=== PATIENT | female | born 1995 | race Caucasian/White ===

== ENCOUNTER 2018-02-05 20:10 | Emergency (ER) | payer BC, MEDICAID ==
[~2018-02-05 20:10] MED LIST: ESCI20TA38 PO; LISD20CA4 PO; LOR5/325 PO
[2018-02-05] MEDS ORDERED: ESCI20TA38 PO (20:18)
--- NOTE | 2018-02-05 20:19 | ER Report ---
History and Physical Time Seen By MD: 20:12 HPI/ROS CHIEF COMPLAINT: Back pain HISTORY OF PRESENT ILLNESS: 22-year-old female presents with her mom concerned over a spot on her left lower back. She's had a spot for 6 months. There is a hypopigmented thickened area of skin with increased pores tonight. The patient notes pain is quite unbearable. She is unable to sleep. She been taking some ibuprofen without relief. She was seen by her chief deputy clerk/bailiff several weeks ago and told it was a birthmark. Patient notes a mild dull pain there for several months. It waxes and wanes. She notes a spot has increased in size and spread toward the midline. On visualization of the back. There is a hypopigmented thickened skin area that appears oval in shape with fingers extending medially. It is mildly tender to palpation. It does appear indurated on palpation. Patient denies dysuria, frequency or hematuria. She denies any trauma to the area. He notes no shortness of breath or cough. REVIEW OF SYSTEMS: Respiratory: No cough, no dyspnea. Cardiovascular: No chest pain, no palpitations. Gastrointestinal: No vomiting, no abdominal pain. Musculoskeletal: As above Allergies: Coded Allergies: No Known Drug Allergies (Unverified , 02/05/18) Home Meds Active Scripts Tramadol Hcl (TRAMADOL HCL) 50 Mg Tablet, 1 TAB PO Q4-6H PRN for PAIN, #15 MG TAKE ONE TO TWO TABLETS BY MOUTH EVERY FOUR TO SIX HOURS NEEDED Prov:ERIN GALAN DO 02/05/18 Reported Medications Escitalopram Oxalate (LEXAPRO) 20 Mg Tablet, 10 MG PO QDAY, TAB 02/05/18 Lisdexamfetamine Dimesylate (VYVANSE) 20 Mg Capsule, 20 MG PO QDAY, CAPSULE 05/01/13 Discontinued Reported Medications Hydrocodone Bit/Acetaminophen (HYDROCODON-ACETAMINOPHEN 5-325) 1 Each Tablet, 1 EACH PO Q4-6H PRN for PAIN 05/01/13 Escitalopram Oxalate (LEXAPRO) 20 Mg Tablet, 20 MG PO QDAY 05/01/13 Discontinued Scripts Hydrocodone Bit/Acetaminophen (HYDROCODON-ACETAMINOPHEN 5-325) 1 Each Tablet, 1 EACH PO Q4-6H PRN for PAIN, #20 0 Refills TAKE ONE TABLET BY MOUTH EVERY 4-6 HOURS NEEDED FOR PAIN Prov:YUDY MATIAS MD 05/01/13 Past Medical/Surgical History Fractured wrist Reviewed Nurses Notes: Yes Old Medical Records Reviewed: Yes Hx Smoking: No Smoking Status: Never Smoker Exposure to Second Hand Smoke?: No Constitutional Vital Sign - Last 24 Hours 02/05/18 02/05/18 02/05/18 02/05/18 20:14 20:25 20:30 20:55 Temp 98.5 Pulse 98 99 93 Resp 16 B/P (MAP) 136/97 133/95 (108) Pulse Ox 96 95 93 02/05/18 02/05/18 02/05/18 02/05/18 21:00 21:10 21:15 21:39 Pulse 104 105 B/P (MAP) 133/99 (110) 130/86 (101) Pulse Ox 94 89 02/05/18 02/05/18 02/05/18 02/05/18 21:44 21:59 22:00 22:14 Pulse 92 89 93 B/P (MAP) 128/81 (97) Pulse Ox 95 94 94 02/05/18 22:19 Pulse ??? Pulse Ox 92 Intake and Output 02/05/18 02/05/18 02/06/18 15:00 23:00 07:00 Intake Total 1000 ml Balance 1000 ml Physical Exam Vital signs stable, afebrile, pulse ox normal General Appearance: The patient is alert, has no immediate need for airway protection and no current signs of toxicity. Mild distress Eyes: Pupils equal and round no injection. Respiratory: Chest is non tender, lungs are clear to auscultation. Cardiac: regular rate and rhythm Gastrointestinal: Abdomen is soft and non tender, no masses, bowel sounds normal., Examination of the left like reveals a hypopigmented thickened area of skin approximately 2 cm x 3 cm in oval-appearing shape with extension medially toward the midline of the medial aspect of this lesion. It's approximately in the mid scapular line. Musculoskeletal: Neck: Neck is supple and non tender. No lymphadenopathy, no thyromegaly Extremities have full range of motion and are non tender. No edema, no calf tenderness Skin: As noted above DIFFERENTIAL DIAGNOSIS: After history and physical exam differential diagnosis was considered for flank pain including but not limited to musculoskeletal causes, kidney stone, pyelonephritis, shingles, and intra-abdominal causes such as diverticulitis and appendicitis. Medical Decision Making Data Points Result Diagram: 12/11/18 2046 12/11/18 2046 Laboratory Hematology Test 02/05/18 20:44 02/05/18 20:46 Urine Color Yellow Urine Clarity Slightly-cloudy Urine pH 6.0 pH (4.8-9.5) Urine Specific [place] 1.020 Urine Protein Negative mg/dL (NEGATIVE) Urine Glucose (UA) Negative mg/dL (NEGATIVE) Urine Ketones Negative mg/dL (NEGATIVE) Urine Blood Negative (NEGATIVE) Urine Nitrite Negative (NEGATIVE) Urine Bilirubin Negative (NEGATIVE) Urine Urobilinogen Negative mg/dL (0.2-1.9) Urine Leukocyte Esterase Negative (NEGATIVE) Urine RBC None /HPF (0-2/HPF) Urine WBC 1 /HPF (0-5/HPF) Urine Squamous Epithelial Cells Many /LPF (</=FEW) Urine Bacteria Negative /HPF (NONE-FEW) Urine Mucus None /HPF (NONE-FEW) Red Blood Count 5.15 M/uL (4.17-5.56) Mean Corpuscular Volume 92.3 fL (80.0-96.0) Mean Corpuscular Hemoglobin 31.4 pg (26.0-33.0) Mean Corpuscular Hemoglobin Concent 34.0 g/dL (32.0-36.0) Red Cell Distribution Width 13.1 % (11.5-14.5) Mean Platelet Volume 9.7 fL (7.2-11.1) Neutrophils (%) (Auto) 65.0 % (39.4-72.5) Lymphocytes (%) (Auto) 22.9 % (17.6-49.6) Monocytes (%) (Auto) 6.7 % (4.1-12.4) Eosinophils (%) (Auto) 1.2 % (0.4-6.7) Basophils (%) (Auto) 4.2 % (0.3-1.4) Nucleated RBC Relative Count (auto) 0.0 /100WBC Neutrophils # (Auto) 3.6 K/uL (2.0-7.4) Lymphocytes # (Auto) 1.3 K/uL (1.3-3.6) Monocytes # (Auto) 0.4 K/uL (0.3-1.0) Eosinophils # (Auto) 0.1 K/uL (0.0-0.5) Basophils # (Auto) 0.2 K/uL (0.0-0.1) Nucleated RBC Absolute Count (auto) 0.00 K/uL Peripheral Blood Smear Yes Y/N Erythrocyte Sedimentation Rate 7 mm/HOUR (0-20) Sodium Level 140 mmol/L (137-145) Potassium Level 4.0 mmol/L (3.5-5.0) Chloride Level 103 mmol/L (98-107) Carbon Dioxide Level 23 mmol/L (22-31) Blood Urea Nitrogen 15 mg/dl (7-18) Creatinine 0.70 mg/dl (0.52-1.04) Glomerular Filtration Rate Calc > 60.0 Random Glucose 102 mg/dl (75-110) Calcium Level 10.0 mg/dl (8.4-10.2) Total Bilirubin 0.2 mg/dl (0.2-1.3) Aspartate Amino Transf (AST/SGOT) 28 U/L (0-35) Alanine Aminotransferase (ALT/SGPT) 24 U/L (0-56) Alkaline Phosphatase 56 U/L (0-126) C-Reactive Protein 0.5 mg/dl (<1.0) Total Protein 8.2 g/dl (6.3-8.2) Albumin 4.6 g/dl (3.5-5.0) Amylase Level 76 U/L (0-110) Lipase 88 U/L (23-300) Human Chorionic Gonadotropin, Qual Negative (NEGATIVE) Chemistry Test 02/05/18 20:44 02/05/18 20:46 Urine Color Yellow Urine Clarity Slightly-cloudy Urine pH 6.0 pH (4.8-9.5) Urine Specific [place] 1.020 Urine Protein Negative mg/dL (NEGATIVE) Urine Glucose (UA) Negative mg/dL (NEGATIVE) Urine Ketones Negative mg/dL (NEGATIVE) Urine Blood Negative (NEGATIVE) Urine Nitrite Negative (NEGATIVE) Urine Bilirubin Negative (NEGATIVE) Urine Urobilinogen Negative mg/dL (0.2-1.9) Urine Leukocyte Esterase Negative (NEGATIVE) Urine RBC None /HPF (0-2/HPF) Urine WBC 1 /HPF (0-5/HPF) Urine Squamous Epithelial Cells Many /LPF (</=FEW) Urine Bacteria Negative /HPF (NONE-FEW) Urine Mucus None /HPF (NONE-FEW) White Blood Count 5.6 k/uL (4.5-11.0) Red Blood Count 5.15 M/uL (4.17-5.56) Hemoglobin 16.2 g/dL (12.0-16.0) Hematocrit 47.5 % (34.0-47.0) Mean Corpuscular Volume 92.3 fL (80.0-96.0) Mean Corpuscular Hemoglobin 31.4 pg (26.0-33.0) Mean Corpuscular Hemoglobin Concent 34.0 g/dL (32.0-36.0) Red Cell Distribution Width 13.1 % (11.5-14.5) Platelet Count 336 K/uL (150-450) Mean Platelet Volume 9.7 fL (7.2-11.1) Neutrophils (%) (Auto) 65.0 % (39.4-72.5) Lymphocytes (%) (Auto) 22.9 % (17.6-49.6) Monocytes (%) (Auto) 6.7 % (4.1-12.4) Eosinophils (%) (Auto) 1.2 % (0.4-6.7) Basophils (%) (Auto) 4.2 % (0.3-1.4) Nucleated RBC Relative Count (auto) 0.0 /100WBC Neutrophils # (Auto) 3.6 K/uL (2.0-7.4) Lymphocytes # (Auto) 1.3 K/uL (1.3-3.6) Monocytes # (Auto) 0.4 K/uL (0.3-1.0) Eosinophils # (Auto) 0.1 K/uL (0.0-0.5) Basophils # (Auto) 0.2 K/uL (0.0-0.1) Nucleated RBC Absolute Count (auto) 0.00 K/uL Peripheral Blood Smear Yes Y/N Erythrocyte Sedimentation Rate 7 mm/HOUR (0-20) Glomerular Filtration Rate Calc > 60.0 Calcium Level 10.0 mg/dl (8.4-10.2) Total Bilirubin 0.2 mg/dl (0.2-1.3) Aspartate Amino Transf (AST/SGOT) 28 U/L (0-35) Alanine Aminotransferase (ALT/SGPT) 24 U/L (0-56) Alkaline Phosphatase 56 U/L (0-126) C-Reactive Protein 0.5 mg/dl (<1.0) Total Protein 8.2 g/dl (6.3-8.2) Albumin 4.6 g/dl (3.5-5.0) Amylase Level 76 U/L (0-110) Lipase 88 U/L (23-300) Human Chorionic Gonadotropin, Qual Negative (NEGATIVE) Urinalysis Test 02/05/18 20:44 Urine Color Yellow Urine Clarity Slightly-cloudy Urine pH 6.0 pH (4.8-9.5) Urine Specific [place] 1.020 Urine Protein Negative mg/dL (NEGATIVE) Urine Glucose (UA) Negative mg/dL (NEGATIVE) Urine Ketones Negative mg/dL (NEGATIVE) Urine Blood Negative (NEGATIVE) Urine Nitrite Negative (NEGATIVE) Urine Bilirubin Negative (NEGATIVE) Urine Urobilinogen Negative mg/dL (0.2-1.9) Urine Leukocyte Esterase Negative (NEGATIVE) Urine RBC None /HPF (0-2/HPF) Urine WBC 1 /HPF (0-5/HPF) Urine Squamous Epithelial Cells Many /LPF (</=FEW) Urine Bacteria Negative /HPF (NONE-FEW) Urine Mucus None /HPF (NONE-FEW) EKG/Imaging Imaging Results: CT scan of the abdomen and pelvis with IV contrast was obtained. The results of the study are COMPUTED TOMOGRAPHY ABDOMEN AND PELVIS WITH INTRAVENOUS CONTRAST DATE OF EXAM: 02/05/2018 9:28 PM INDICATION: Severe left flank pain, subcutaneous lesion. COMPARISON: None. TECHNIQUE: Contrast enhanced abdomen and pelvis CT performed during the injection of 75 ml of Isovue 370. Sagittal and coronal reconstructions were performed. One of the following dose optimization techniques was utilized in the performance of this exam: Automated exposure control; adjustment of the mA and/or kV according to the patient's size; or use of an iterative reconstruction technique. Specific details can be referenced in the facility's radiology CT exam operational policy. FINDINGS: Lung bases: Clear. Liver and hepatic vasculature: Normal. Gallbladder and bile ducts: Normal. Spleen: Normal. Pancreas: Normal. Adrenals: Normal. Kidneys, ureters and bladder: Normal. Retroperitoneum and aorta: Normal. GI tract, mesentery and peritoneum: Question mild colonic wall thickening. No evidence of obstruction. No pneumatosis or pneumoperitoneum. Normal appendix. Uterus and adnexa: Trace free fluid in the pelvis is within physiologic limits, otherwise unremarkable. Bones and soft tissues: No acute abnormality or suspicious lesion. IMPRESSION: 1. Questionable mild colonic wall thickening that could indicate infectious or inflammatory colitis in the appropriate setting. 2. No suspicious subcutaneous lesion identified. 3. Trace free fluid in the pelvis is within physiologic limits. The study was read by the radiologist. I viewed the images myself on the PACS system. ED Course/Re-evaluation Clinical Indication for ER IV: Hydration, IV Access ED Course She was admitted to an examination room. H&P was done. The differential diagnosis was considered. On clinical examination. Patient has severe left flank pain. There is some discoloration of the skin and a large patch of abnormal appearing tissue. Patient with several months of pain. It's been worse over the last week or so. She didn't seek evaluation by her primary chief deputy clerk/bailiff several months ago. She was told it was a birthmark. His only continue to get worse and spread. Diagnostic evaluation is undertaken. A CT scan of the abdomen and pelvis is unremarkable for pathology adjacent to the affected area. Patient's diagnostic laboratory studies are unremarkable. Results are discussed with the mom. I advised that they need to follow up with dermatology. Information was provided for commercial real estate manager in [place]. I think she needs a biopsy of this lesion to rule out serious pathology. She was given a prescription of tramadol for pain relief. They're advised also to use ibuprofen and Tylenol as needed. Decision to Disposition Date: Feb 05, 2018 Decision to Disposition Time: 22:11 Depart Departure Latest Vital Signs Vital Signs Date Time Temp Pulse Resp B/P (MAP) Pulse Ox O2 Delivery O2 Flow Rate FiO2 02/05/18 22:19 ??? 92 02/05/18 22:00 128/81 (97) 02/05/18 20:14 98.5 16 Impression: Primary Impression: Left flank pain Additional Impression: Skin lesion of back Condition: Improved Disposition: HOME OR SELF-CARE Referrals: MILAGROS DIAZ MD (PCP) New Scripts Tramadol Hcl (TRAMADOL HCL) 50 Mg Tablet 1 TAB PO Q4-6H PRN for PAIN, #15 MG TAKE ONE TO TWO TABLETS BY MOUTH EVERY FOUR TO SIX HOURS NEEDED Prov: ERIN GALAN DO 02/05/18 Patient Instructions: GENERAL ER DISCHARGE INSTRUCTIONS Additional Instructions: Follow-up with dermatology for biopsy of a skin lesion Alternate ibuprofen and Tylenol as needed for pain relief Apply heating pad to the affected area to soothe the area [facility] [address] [place], [place] [address]nne Kameron D[facility] [place] Milagro Stein Problem Qualifiers ERIN GALAN DO Feb 05, 2018 20:19
[2018-02-05] MEDS ORDERED: NS(*) 0.9% 1000 ML BAG 1,000 ML IV ONE (20:28)
[2018-02-05] MEDS ORDERED: ONDANSETRON 4 MG/2 ML VIAL IVP ONE (20:30)
[2018-02-05] MEDS ORDERED: fentaNYL CITR 100 MCG/2 ML AMP IVP ONE (20:30)
[2018-02-05] MEDS ORDERED: IOPAMIDOL 76% 50 ML INFUS BTL 100 ML ONE (20:49)
[2018-02-05 21:10] LABS: PLATELET COUNT, AUTOMATED 336 K/uL (150-450)
[2018-02-05 22:00] VITALS: BP 128/81
--- NOTE | 2018-02-05 22:02 | RADIOLOGY IMAGING REPORT ---
[place] [facility] [place] Yael Acosta : 1995 MR: [id number] V: [id number] EXAM DATE: ORDERING PHYSICIAN: ERIN GALAN TECHNOLOGIST: Location: [facility] [place] Patient: Yael Acosta : 1995 Visit/Account:[id number] Date of Sevice: 02/05/2018 COMPUTED TOMOGRAPHY ABDOMEN AND PELVIS WITH INTRAVENOUS CONTRAST DATE OF EXAM: 02/05/2018 9:28 PM INDICATION: Severe left flank pain, subcutaneous lesion. COMPARISON: None. TECHNIQUE: Contrast enhanced abdomen and pelvis CT performed during the injection of 75 ml of Isovue 370. Sagittal and coronal reconstructions were performed. One of the following dose optimization te chniques was utilized in the performance of this exam: Automated exposure control; adjustment of the mA and/or kV according to the patient's size; or use of an iterative reconstruction technique. Spec [facility] details can be referenced in the facility's radiology CT exam operational policy. FINDINGS: Lung bases: Clear. Liver and hepatic vasculature: Normal. Gallbladder and bile ducts: Normal. Spleen: Normal. Pancreas: Normal. Adrenals: Normal. Kidneys, ureters and bladder: Normal. Retroperitoneum and aorta: Normal. GI tract, mesentery and peritoneum: Question mild colonic wall thickening. No evidence of obstructi on. No pneumatosis or pneumoperitoneum. Normal appendix. Uterus and adnexa: Trace free fluid in the pelvis is within physiologic limits, otherwise unremarkabl e. Bones and soft tissues: No acute abnormality or suspicious lesion. IMPRESSION: 1. Questionable mild colonic wall thickening that could indicate infectious or inflammatory colitis in the appropriate setting. 2. No suspicious subcutaneous lesion identified. 3. Trace free fluid in the pelvis is within physiologic limits. Dr. Meadows discussed this case with ERIN GALAN on 02/05/2018 9:58 PM. Report Dictated By: Terry Meadows MD at 02/05/2018 9:46 PM Report E-Signed By: Terry Meadows MD at 02/05/2018 9:58 PM [id number]
[2018-02-05] MEDS ORDERED: TRAM-420 PO (22:14)
== END 2018-02-05 22:22 | disposition home or self-care (01) ==
LOC: ER 20:28
DX: L98.9 Disorder of the skin and subcutaneous tissue, unspecified (principal); M54.9 Dorsalgia, unspecified
CPT/HCPCS: 74177; 81001; 82150; 83690; 84703; 85025; 85651; 86140; 96361; 96374; 96375; 99284; J2405; J3010; J7030; Q9967; 82040; 82247; 82310; 82374; 82435; 82565; 82947; 84075; 84132; 84155; 84295; 84450; 84460; 84520

== ENCOUNTER 2018-06-28 12:20 | Emergency (ER) | payer BC ==
[~2018-06-28 12:20] MED LIST changes: +TRAM-420 PO
--- NOTE | 2018-06-28 12:21 | ER Report ---
History and Physical Time Seen By MD: 12:21 HPI/ROS CHIEF COMPLAINT: Possible allergic reaction HISTORY OF PRESENT ILLNESS: Patient is a 22-year-old female with no contributory past medical history who presents to the emergency department for evaluation of suspected allergic reaction. She states that she noticed some itching and redness at the site of the scar from prior surgery of 4 years ago on her forearm. She began having itching all over and some subjective shortness of breath. She denies any contact with any new chemicals or detergents. She did not eat anything that she has not had before. She denies any fevers or chills. REVIEW OF SYSTEMS: Respiratory: No cough, no dyspnea. Cardiovascular: No chest pain, no palpitations. Gastrointestinal: No vomiting, no abdominal pain. Musculoskeletal: No back pain. Allergies: Coded Allergies: No Known Drug Allergies (Unverified , 02/05/18) Home Meds Active Scripts Tramadol Hcl (TRAMADOL HCL) 50 Mg Tablet, 1 TAB PO Q4-6H PRN for PAIN, #15 MG TAKE ONE TO TWO TABLETS BY MOUTH EVERY FOUR TO SIX HOURS NEEDED Prov:ERIN GALAN DO 02/05/18 Reported Medications Escitalopram Oxalate (LEXAPRO) 20 Mg Tablet, 10 MG PO QDAY, TAB 02/05/18 Lisdexamfetamine Dimesylate (VYVANSE) 20 Mg Capsule, 20 MG PO QDAY, CAPSULE 05/01/13 Past Medical/Surgical History Noncontributory towards these chief complaints. Hx Smoking: No Smoking Status: Never Smoker Exposure to Second Hand Smoke?: No Constitutional Vital Sign - Last 24 Hours 06/28/18 12:25 Temp 98.2 Pulse 116 Resp 28 B/P (MAP) 145/110 Pulse Ox 97 O2 Delivery Room Air Physical Exam General Appearance: The patient is alert, has no immediate need for airway protection and no current signs of toxicity. Eyes: Pupils equal and round no injection. Respiratory: Chest is non tender, lungs are clear to auscultation. Cardiac: regular rate and rhythm [ ] Gastrointestinal: Abdomen is soft and non tender, no masses, bowel sounds normal. Musculoskeletal: Neck: Neck is supple and non tender. Extremities have full range of motion and are non tender. Skin: Generalized hives [ ] Medical Decision Making ED Course/Re-evaluation ED Course 06/28/2018 12:34:45 pm time will be to treat as an allergic reaction. We will give IV Solu-Medrol, IV Benadryl and IV Pepcid. 06/28/2018 1:24:01 pm patient feels improved after treatment in the emergency department will discharge home. Decision to Disposition Date: June 28, 2018 Decision to Disposition Time: 13:24 Depart Departure Latest Vital Signs Vital Signs Date Time Temp Pulse Resp B/P (MAP) Pulse Ox O2 Delivery O2 Flow Rate FiO2 06/28/18 12:25 98.2 116 28 145/110 97 Room Air Impression: Primary Impression: Allergic reaction Condition: Improved Disposition: HOME OR SELF-CARE New Scripts Famotidine (PEPCID) 20 Mg Tablet 20 MG PO QDAY, #5 TAB 0 Refills Prov: GERRI DAWSON MD 06/28/18 Prednisone (PREDNISONE) 20 Mg Tablet 40 MG PO QDAY, #8 TAB 0 Refills start on 06/29/18 Prov: GERRI DAWSON MD 06/28/18 Departure Forms: ER Transition Record, Medications Reconciliation, Off Work/School Form, School or Work Release?: School Number of days to be released: 1 Patient Portal Information Patient Instructions: General Allergic Reaction (ED) Problem Qualifiers Primary Impression: Allergic reaction Encounter type: initial encounter Qualified Codes: T78.40XA - Allergy, unspecified, initial encounter GERRI DAWSON MD June 28, 2018 12:21
[2018-06-28 12:25] VITALS: BP 145/110
[2018-06-28] MEDS ORDERED: FAMOTIDINE(*) 20MG/50ML PREMIX 50 ML IVPB ONE (12:30)
[2018-06-28] MEDS ORDERED: methylPREDNIS SUCC 125 MG/2ML IVP ONE (12:30)
[2018-06-28] MEDS ORDERED: diphenhydrAMINE 50 MG/ML VIAL IVP ONE (12:30)
[2018-06-28] MEDS ORDERED: FAMO20TA28 PO (13:27)
[2018-06-28] MEDS ORDERED: PRED20TA6 PO (13:27)
== END 2018-06-28 13:49 | disposition home or self-care (01) ==
LOC: ER 12:27
DX: T78.40XA Allergy, unspecified, initial encounter (principal)
CPT/HCPCS: 96374; 96375; 99284; J1200; J2930